=== PATIENT | female | born 1980 | race Asian ===

== ENCOUNTER 2018-05-15 11:24 | Emergency (ER) | payer OTHER ==
[~2018-05-15] VITALS: Ht 160 cm; Wt 67.5 kg
[2018-05-15] MEDS ORDERED: METHOCARBAMOL 750 MG TABLET ONE (12:17)
[2018-05-15] MEDS ORDERED: METHOCARBAMOL 750 MG TABLET PO ONE (12:30)
[2018-05-15 13:37] VITALS: BP 101/65
== END 2018-05-15 13:40 | disposition home or self-care (01) ==
LOC: ED 13:34
DX: S16.1XXA Strain of muscle, fascia and tendon at neck level, initial encounter (principal); M79.601 Pain in right arm; V49.88XA Car occupant (driver) (passenger) injured in other specified transport accidents, initial encounter; Y93.89 Activity, other specified; Y92.89 Other specified places as the place of occurrence of the external cause; Y99.8 Other external cause status
CPT/HCPCS: 72125; 99284